=== PATIENT | male | born 1980 | race African-American/Black ===

== ENCOUNTER 2018-04-14 17:10 | Emergency (ER) | payer OTHER ==
[~2018-04-14] VITALS: Ht 177.8 cm; Wt 106.8 kg
[2018-04-14] MEDS ORDERED: ACETAMINOPHEN 325 MG TAB PO ONE (17:45)
[2018-04-14] MEDS ORDERED: AMOXICILLIN 500 MG CAP PO ONE (17:45)
[2018-04-14] MEDS ORDERED: ZOFR4TAB14 PO (17:53)
[2018-04-14] MEDS ORDERED: AMOX500C PO (17:53)
[2018-04-14] MEDS ORDERED: ONDANSETRON 4 MG ORAL DISINTEGRATING TAB (Q0162 PER 1MG) PO ONE (18:00)
[2018-04-14] MEDS ORDERED: IBUPROFEN 600 MG TAB PO ONE (18:00)
[2018-04-14 18:20] LABS: INFLUENZA A AMPLIFICATION NEGATIVE (NEGATIVE); INFLUENZA B AMPLIFICATION NEGATIVE (NEGATIVE)
[2018-04-14 19:00] VITALS: BP 115/61
[2018-04-14] MEDS ORDERED: IBUPROFEN 800 MG TAB PO ONE (19:15)
== END 2018-04-14 19:24 | disposition home or self-care (01) ==
LOC: M ED 17:10 → EDBD 17:10 → M ED 19:24
DX: J02.0 Streptococcal pharyngitis (principal)
CPT/HCPCS: 87502; 87880; 99284; Q0162

== ENCOUNTER 2019-01-22 18:03 | Emergency (ER) | payer OTHER ==
[~2019-01-22] VITALS: Ht 177.8 cm; Wt 107.3 kg
[~2019-01-22 18:03] MED LIST: AMOX500C PO; ZOFR4TAB14 PO
[2019-01-22] MEDS ORDERED: KETOROLAC 60 MG/2 ML VIAL (J1885) IM ONE (18:45)
--- NOTE | 2019-01-22 18:49 | REP ---
Left knee four views: There are no comparisons. There are postsurgical changes compatible with anterior cruciate ligament graft. There is demineralization. There is no fracture or dislocation. There are no lytic, blastic or destructive skeletal changes. 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 There is no joint effusion. Electronically Signed by Phuc Snider MD 01/22/2019 06:40 P
--- NOTE | 2019-01-22 19:14 | REPVR ---
PROCEDURE INFORMATION: Exam: CT Left Lower Extremity Without Contrast, Knee Exam date and time: 01/22/2019 6:47 PM Clinical history: 38 years old, male; Pain; Knee; Left; Additional info: Severe pain, numbness, swelling, TECHNIQUE: Imaging protocol: CT of the Left lower extremity without contrast was performed. Exam focused on the knee. Radiation optimization: All CT scans at this facility use at least one of these dose optimization techniques: automated exposure control; mA and/or kV adjustment per patient size (includes targeted exams where dose is matched to clinical indication); or iterative reconstruction. COMPARISON: CR Knee, complete 01/22/2019 6:19 PM FINDINGS: There are changes of prior ACL reconstruction with metallic screws and faintly radiodense interference screws within the distal femur lateral condyle and proximal tibia. There is an old drill hole within the distal femur lateral condyle. Moderate severe osteoarthritis of the tibiofemoral and patellofemoral joints is present. There are multiple intra-articular loose bodies within the knee joint. There is an old healed fracture deformity of the posterior aspect of the medial tibial plateau. A small to moderate size knee joint effusion is present. No acute fracture is identified. IMPRESSION: 1. Status post ACL reconstruction. 2. Osteoarthritis with intra-articular loose bodies and knee joint effusion. 3. No acute fracture. Electronically signed by: Robin Herrera On 01/22/2019 19:13:51 PM
[2019-01-22] MEDS ORDERED: NAPR-837 PO (19:20)
[2019-01-22 19:21] VITALS: BP 150/100
== END 2019-01-22 19:36 | disposition home or self-care (01) ==
LOC: M ED 18:03
DX: M17.12 Unilateral primary osteoarthritis, left knee (principal); M25.462 Effusion, left knee; R20.9 Unspecified disturbances of skin sensation; I10 Essential (primary) hypertension; Z98.890 Other specified postprocedural states
CPT/HCPCS: 73564; 73700; 96372; 99284; J1885

== ENCOUNTER 2019-10-06 14:05 | Emergency (ER) | payer OTHER ==
[~2019-10-06] VITALS: Ht 177.8 cm; Wt 112.6 kg
[~2019-10-06 14:05] MED LIST changes: +NAPR-837 PO
[2019-10-06 15:11] LABS: BASO % 0.5 % (0.0-1.0); EOS # 0.1 10^3/uL (0.0-0.5); EOS % 2.1 % (0.0-3.0); HEMATOCRIT 44.1 % (42.0-52.0); HEMOGLOBIN 14.7 g/dl (13.5-17.5); LYMPH # 1.4 10^3/uL (1.5-5.0); LYMPH % 21.9 % (24.0-44.0); MEAN CORPUSCULAR HEMOGLOBIN 29.8 pg (27.0-33.0); MEAN CORPUSCULAR HGB CONC 33.3 g/dl (32.0-36.5); MEAN CORPUSCULAR VOLUME 89.3 fl (80.0-96.0); MONO # 0.3 10^3/uL (0.0-0.8); MONO % 4.1 % (0.0-5.0); NEUTROPHILS # 4.5 10^3/uL (1.5-8.5); NEUTROPHILS % 71.1 % (36.0-66.0); PLATELET COUNT, AUTOMATED 256 10^3/uL (150-450); RED BLOOD COUNT 4.94 10^6/uL (4.30-6.10); WHITE BLOOD COUNT 6.3 10^3/uL (4.0-10.0)
[2019-10-06] MEDS ORDERED: hydroCHLOROthiazide 25 MG TAB PO ONE (16:30)
[2019-10-06] MEDS ORDERED: HYDR25TAB PO (17:10)
--- NOTE | 2019-10-06 17:13 | REP ---
Clinical: Hypertension and chest pain . Comparison: None . Findings: The mediastinum and cardiac silhouette are stable and within normal limits for portable technique. The lung mckenzie are clear without acute consolidation, effusion, or pneumothorax. Skeletal structures are intact. Impression: No acute cardiopulmonary process appreciated. Electronically Signed by Zaheer Lozoya MD 10/06/2019 05:04 P
[2019-10-06 17:31] VITALS: BP 152/77
--- NOTE | 2019-10-06 21:44 | ECGEPIP ---
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
== END 2019-10-06 17:32 | disposition home or self-care (01) ==
LOC: M ED 14:05
DX: I10 Essential (primary) hypertension (principal); G47.33 Obstructive sleep apnea (adult) (pediatric)

== ENCOUNTER 2020-01-27 16:36 | Emergency (ER) | payer OTHER ==
[~2020-01-27] VITALS: Ht 177.8 cm; Wt 114.7 kg
[~2020-01-27 16:36] MED LIST changes: +HYDR25TAB PO
[2020-01-27 16:37] VITALS: BP 131/80
[2020-01-27] MEDS ORDERED: IBUP80TA PO (16:53)
== END 2020-01-27 17:19 | disposition home or self-care (01) ==
LOC: M ED 16:36
DX: M23.92 Unspecified internal derangement of left knee (principal); I10 Essential (primary) hypertension; G47.33 Obstructive sleep apnea (adult) (pediatric); Z79.899 Other long term (current) drug therapy; Z87.828 Personal history of other (healed) physical injury and trauma